=== PATIENT | female | born 1995 | race Caucasian/White ===

== ENCOUNTER 2017-05-05 13:02 | Emergency (ER) | payer OTHER ==
[~2017-05-05] VITALS: Ht 162.6 cm; Wt 54.9 kg
[~2017-05-05 13:02] MED LIST: TRI-SPRINTEC1 EACH PO; VYVANSE20 MG PO
[2017-05-05 13:36] LABS: HEMATOCRIT 40.9 % (36.0-46.0); MCH 31.3 PG (29.0-34.0); MCHC 34.5 G/DL (30.0-36.0); MCV 90.9 FL (83-99); MEAN PLAT.VOLUME 11.4 uM^3 (9.5-12.4); PLATELET COUNT 189 K/uL (156-360); RBC DIS.WIDTH-SD 40.2 % (39-53); WHITE BLOOD COUNT 6.6 K/uL (4.1-10.2)
[2017-05-05 13:45] LABS: CHLORIDE 108 mEq/L (99-109); POTASSIUM 4.3 mEq/L (3.7-5.4); SODIUM 139 mEq/L (136-147)
[2017-05-05 13:47] LABS: GLUCOSE 90 mg/dL (70-99)
[2017-05-05 13:48] LABS: ANION GAP 8 MEQ/L (2-14)
[2017-05-05 13:49] LABS: TOTAL BILIRUBIN 0.5 mg/dL (0.0-1.0)
[2017-05-05 13:50] LABS: ALKALINE PHOSPHATASE 50 IU/L (3-129)
[2017-05-05 13:51] LABS: GFR ESTIMATE (CALCULATED) > 59 mL/min/
[2017-05-05 13:52] LABS: UREA NITROGEN (BUN) 17 mg/dL (9-23)
[2017-05-05 13:54] LABS: LIPASE 12 U/L (1.0-51.0)
[2017-05-05 14:00] LABS: QUANTITATIVE HCG < 4.0 MIU/ML
[2017-05-05 15:06] LABS: ADD MIUA? NO; BILIRUBIN NEGATIVE; BLOOD NEGATIVE; COLOR YELLOW ((YELLOW)); GLUCOSE (STRIP) NEGATIVE; KETONES NEGATIVE; LEUKOCYTES NEGATIVE; NITRITE NEGATIVE; PROTEIN (STRIP) NEGATIVE; SPECIFIC GRAVITY 1.021 (1.000-1.030); UROBILINOGEN 0.2 MG/DL (0.2-1.0)
[2017-05-05 15:47] VITALS: BP 104/85
== END 2017-05-05 15:48 | disposition home or self-care (01) ==
LOC: EME 13:02
PROVIDERS: Nurse Practitioner Family
DX: R10.84 Generalized abdominal pain (principal); N83.201 Unspecified ovarian cyst, right side; R11.2 Nausea with vomiting, unspecified; F90.9 Attention-deficit hyperactivity disorder, unspecified type; F41.9 Anxiety disorder, unspecified; F32.9 Major depressive disorder, single episode, unspecified
CPT/HCPCS: 74177; 80053; 81003; 83690; 84702; 85027; J7030

== ENCOUNTER 2017-05-08 13:40 | Emergency (ER) | payer OTHER ==
[~2017-05-08] VITALS: Ht 162.6 cm; Wt 54.7 kg
[2017-05-08 16:25] LABS: MCH 31.7 PG (29.0-34.0); MCV 90.7 FL (83-99); MEAN PLAT.VOLUME 11.4 uM^3 (9.5-12.4); PLATELET COUNT 179 K/uL (156-360); RBC DIS.WIDTH-CV 12.1 % (11.8-14.6); RBC DIS.WIDTH-SD 40.2 % (39-53); RED BLOOD COUNT 4.41 M/uL (3.80-5.20); WHITE BLOOD COUNT 8.7 K/uL (4.1-10.2)
[2017-05-08 16:35] LABS: CHLORIDE 104 mEq/L (99-109); POTASSIUM 3.9 mEq/L (3.7-5.4); SODIUM 136 mEq/L (136-147)
[2017-05-08 16:37] LABS: GLUCOSE 83 mg/dL (70-99)
[2017-05-08 16:38] LABS: ANION GAP 9 MEQ/L (2-14)
[2017-05-08 16:40] LABS: ALKALINE PHOSPHATASE 52 IU/L (3-129)
[2017-05-08 16:41] LABS: GFR ESTIMATE (CALCULATED) > 59 mL/min/
[2017-05-08 16:42] LABS: DIRECT BILIRUBIN 0.4 mg/dL (0.0-0.3); UREA NITROGEN (BUN) 13 mg/dL (9-23)
[2017-05-08 16:44] LABS: LIPASE 9 U/L (1.0-51.0)
[2017-05-08 16:50] LABS: QUANTITATIVE HCG < 4.0 MIU/ML; TOTAL BILIRUBIN 0.9 mg/dL (0.0-1.0)
[2017-05-08] MEDS ORDERED: VIBRAMYCIN100 MG PO (17:52)
[2017-05-08] MEDS ORDERED: PERCOCET 5/31 TABLET PO (17:53)
[2017-05-08 18:17] VITALS: BP 113/70
[2017-05-10 11:04] LABS: CHLAMYDIA TRACHOMATIS NEGATIVE; NEISSERIA GONORRHOEAE NEGATIVE
== END 2017-05-08 18:20 | disposition home or self-care (01) ==
LOC: EME 13:40
PROVIDERS: Emergency Medicine
DX: N73.9 Female pelvic inflammatory disease, unspecified (principal); R10.9 Unspecified abdominal pain; N83.209 Unspecified ovarian cyst, unspecified side; F90.9 Attention-deficit hyperactivity disorder, unspecified type; F41.9 Anxiety disorder, unspecified; F32.9 Major depressive disorder, single episode, unspecified
CPT/HCPCS: 76856; 80048; 80076; 83690; 84702; 85027; 87210; 87491; 87591; 99281; 99284; J0696